=== PATIENT | female | born 1970 | race Caucasian/White ===

== ENCOUNTER 2016-11-24 13:58 | Emergency (ER) | payer SELFPAY ==
[~2016-11-24] VITALS: Ht 167.6 cm; Wt 86.2 kg
[2016-11-24 14:15] VITALS: BP 144/81
[2016-11-24] MEDS ORDERED: LORAZEPAM 1 MG TABLET PO ONE (14:30)
[2016-11-24] MEDS ORDERED: ACETAMINOPHEN 325 MG TABLET PO ONE (14:30)
[2016-11-24] MEDS ORDERED: ACETAMINOPHEN 325 MG TABLET ONE (14:44)
[2016-11-24] MEDS ORDERED: LORAZEPAM 1 MG TABLET ONE (14:44)
== END 2016-11-24 15:36 | disposition home or self-care (01) ==
LOC: ER 14:00
DX: F41.9 Anxiety disorder, unspecified (principal); R51 Headache; I10 Essential (primary) hypertension
CPT/HCPCS: A4606; Z7610